=== PATIENT | female | born 1995 | race Hispanic/Latino ===

== ENCOUNTER 2023-06-02 13:53 | Day surgery (SDC) | payer SELFPAY ==
[2023-06-02] MEDS ORDERED: hydrALAZINE 20 MG/ML VIAL SLOW IVP PRN (14:17)
[2023-06-02 15:12] VITALS: BMI 29.0
[2023-06-02 15:17] LABS: Bilirubin Neg (Negative); Blood, Urine Negative (Negative); Clarity Clear (Clear); Glucose, Urine (Dipstick) Normal (Negative); Ketone, Urine Negative (Negative); Leukocyte Negative (Negative); Nitrite Negative (Negative); Protein, Urine (Dipstick) 15 mg/dl (Neg-Trace); Specific Gravity, Urine 1.015 (1.005-1.030); Urobilinogen Normal mg/dL (Less than 2)
[2023-06-02 15:39] LABS: CAUTI Indications for Culture Pregnancy
[2023-06-02 15:40] LABS: #Monocytes 0.4 10x3/uL (0.0-1.1); #Neutrophils 4.2 10x3/uL (1.5-8.4); %Basophils 0.5 % (0.0-2.0); %Eosinophils 0.6 % (0.0-6.0); %Lymphocytes 24.4 % (18.0-47.0); Hematocrit 36.1 % (34.9-44.5); Hemoglobin 12.6 g/dL (12.0-15.5); Mean Corpuscular HGB CONC 34.9 g/dL (32.0-36.0); Mean Corpuscular Hemoglobin 32.1 pg (27.0-33.0); Mean Corpuscular Volume 92.1 fl (81.6-98.3); Mean Platelet Volume 9.9 fl (7.4-10.4); Platelet Count 313 10x3/uL (150-450); RBC Distribution Width 13.2 % (11.5-14.5); Red Blood Cell (RBC) Count 3.92 10x6/uL (3.90-5.03); White Blood Cell (WBC) Count 6.3 10x3/uL (3.5-10.5)
[2023-06-02 15:40] LABS: Transitional Epithelial 0-3 HPF (None Seen)
[2023-06-02 15:42] LABS: Renal Epithelial 0-3 HPF (None Seen)
[2023-06-02 15:43] LABS: Mucous/LPF 2+ LPF (<2+)
[2023-06-02 15:44] LABS: Bacteria/HPF 2+ HPF (None Seen)
[2023-06-02 15:45] LABS: Urine Culture Reflex Yes Yes
[2023-06-02 15:48] LABS: FFN Internal QC Analyzer PASS (PASS); FFN Internal QC Cassette PASS (PASS); Fetal Fibronectin Negative (Negative)
[2023-06-02] MEDS ORDERED: Lactated Ringer's 1,000 ML IV SCH (16:00)
[2023-06-02 16:02] LABS: ALT (SGPT) 20 U/L (8-55); AST (SGOT) 15 U/L (5-34); Albumin 3.2 g/dL (3.5-5.0); Alkaline Phosphatase 144 U/L (40-110); Anion Gap 12 mmol/L (10-20); BUN (Urea Nitrogen) 6 mg/dL (7.0-18.7); Bilirubin, Total 0.4 mg/dL (0.2-1.2); Calc. Creatinine Clearance 148 mL/min (70-130); Calcium 8.6 mg/dL (7.8-10.44); Carbon Dioxide 20 mmol/L (22-29); Chloride 106 mmol/L (98-107); Estimated GFR 128; Globulin 3.4 g/dL (2.4-3.5); Glucose 130 mg/dL (70-105); Lipase 71 U/L (8-78); Potassium 3.7 mmol/L (3.5-5.1); Protein, Total 6.6 g/dL (6.0-8.3); Sodium 134 mmol/L (136-145)
[2023-06-02] MEDS ORDERED: cefTRIAXone\\ROCEPHIN 2 GM in Sodium Chloride 0.9% 100 ML IVPB SCH (18:00)
== END 2023-06-02 20:05 | disposition home or self-care (01) ==
LOC: CSHLD/OP 13:53
PROVIDERS: ATTEND Obstetrics & Gynecology
DX: O47.03 False labor before 37 completed weeks of gestation, third trimester (principal); O26.893 Other specified pregnancy related conditions, third trimester; L29.9 Pruritus, unspecified; Z3A.33 33 weeks gestation of pregnancy; Z79.899 Other long term (current) drug therapy
CPT/HCPCS: 36415; 51701; 76770; 80053; 81001; 82239; 82731; 83690; 85025; 87086; 87480; 87510; 87660; 96360; 96361; 96365; 99285; J0696; J3490

== ENCOUNTER 2023-07-03 22:03 | Day surgery (SDC) | payer SELFPAY ==
[2023-07-03 22:34] VITALS: BMI 30.8
[2023-07-03] MEDS ORDERED: hydrALAZINE 20 MG/ML VIAL SLOW IVP PRN (22:55)
[2023-07-04 00:03] LABS: Fetal Membranes Rupture No Membranes Rupture (No Rupture)
== END 2023-07-04 02:15 | disposition home or self-care (01) ==
LOC: CSHLD/OP 22:03
PROVIDERS: ATTEND Obstetrics & Gynecology
DX: O47.1 False labor at or after 37 completed weeks of gestation (principal); O23.593 Infection of other part of genital tract in pregnancy, third trimester; N93.8 Other specified abnormal uterine and vaginal bleeding; O13.3 Gestational [pregnancy-induced] hypertension without significant proteinuria, third trimester; Z3A.38 38 weeks gestation of pregnancy; Z79.899 Other long term (current) drug therapy
CPT/HCPCS: 84112; 87480; 87510; 87660; 99285

== ENCOUNTER 2023-07-07 18:00 | Inpatient (IN) | payer MEDICAID, OTHER ==
[2023-07-07 20:28] VITALS: BMI 30.4
[2023-07-07] MEDS ORDERED: Methylergonovine 0.2 MG/ML VIAL IM PRN (21:30)
[2023-07-07] MEDS ORDERED: Carboprost 250 MCG/ML AMP IM PRN (21:30)
[2023-07-07] MEDS ORDERED: Promethazine HCl 25 MG/ML VIAL IM PRN (21:30)
[2023-07-07] MEDS ORDERED: fentaNYL 50 mcg/mL 1 mL Vial SLOW IVP PRN (21:30)
[2023-07-07] MEDS ORDERED: hydrALAZINE 20 MG/ML VIAL SLOW IVP PRN (21:30)
[2023-07-07] MEDS ORDERED: Oxytocin 30 units/NS 500 ML 500 ML IV SCH ×2 (21:30→21:45)
[2023-07-07] MEDS ORDERED: Misoprostol 200 MCG TAB PR PRN (21:30)
[2023-07-07] MEDS ORDERED: Tranexamic Acid 1,000 MG/10 ML VIAL IVP PRN (21:30)
[2023-07-07] MEDS ORDERED: Diphenoxylate HCl/Atropine Tablet PO PRN (21:30)
[2023-07-07] MEDS ORDERED: Lidocaine 1% (PF) 30 ML VIAL SC PRN (21:30)
[2023-07-07] MEDS ORDERED: Acetaminophen 500 MG TAB PO PRN (21:30)
[2023-07-07] MEDS ORDERED: Docusate 100 MG CAP PO PRN (21:30)
[2023-07-07] MEDS ORDERED: Ondansetron PF 4 MG/2 ML Vial IVP PRN (21:30)
[2023-07-07] MEDS: Misoprostol 100 MCG TAB VAG SCH (21:55)
[2023-07-07 22:12] LABS: Hematocrit 35.7 % (34.9-44.5); Hemoglobin 12.4 g/dL (12.0-15.5); Mean Corpuscular HGB CONC 34.7 g/dL (32.0-36.0); Mean Corpuscular Hemoglobin 31.3 pg (27.0-33.0); Mean Corpuscular Volume 90.2 fl (81.6-98.3); Mean Platelet Volume 9.7 fl (7.4-10.4); Platelet Count 315 10x3/uL (150-450); RBC Distribution Width 13.2 % (11.5-14.5); Red Blood Cell (RBC) Count 3.96 10x6/uL (3.90-5.03)
[2023-07-07 22:47] LABS: HBSAg Index 0.12 S/CO (0-0.99); Hep B Surf Ag - L&D Non-Reactive S/CO (NonReactive)
[2023-07-07 22:48] LABS: Syphilis Antibody Nonreactive (Nonreactive); Syphilis Antibody Index 0.06 S/CO (<1.00 Non-Reactive)
[2023-07-08] MEDS ORDERED: Lidocaine 1% (PF) 30 ML VIAL SC PRN (05:35)
[2023-07-08] MEDS ORDERED: Lactated Ringer's 1,000 ML IV SCH (08:45)
[2023-07-08] MEDS ORDERED: fentaNYL/Ropivacaine Epidural 100 ML ONE (09:48)
[2023-07-08] MEDS ORDERED: Acetaminophen 325 MG TAB PO PRN (11:32)
[2023-07-08] MEDS ORDERED: Moisturizing Cream (Eucerin) 113 GM JAR TOP PRN (11:32)
[2023-07-08] MEDS ORDERED: Naloxone HCl 0.4 mg/ml Vial IVP PRN ×2 (11:32)
[2023-07-08] MEDS ORDERED: diphenhydrAMINE 50 MG/ML VIAL IVP PRN (11:32)
[2023-07-08] MEDS ORDERED: Ondansetron PF 4 MG/2 ML Vial IVP PRN (11:32)
[2023-07-08] MEDS ORDERED: Lactated Ringer's 500 ML IV PRN (11:32)
[2023-07-08] MEDS ORDERED: Promethazine HCl 25 MG/ML VIAL IM PRN (11:32)
[2023-07-08] MEDS ORDERED: ePHEDrine Sulfate 50 MG/10 ML VIAL SLOW IVP PRN (11:32)
[2023-07-08] MEDS ORDERED: Communication Order-Pharmacy FS SCH (11:45)
[2023-07-08] MEDS ORDERED: Lidocaine 2% MPF 10 ML AMP (For Epidural Use) ONE (19:01)
[2023-07-08] MEDS ORDERED: Bupivacaine 0.25% HCL 30 ML VIAL ONE (19:01)
[2023-07-08] MEDS: Lactated Ringer's 1,000 ML IV SCH ×2 (21:25→23:08)
[2023-07-08] MEDS: Misoprostol 100 MCG TAB VAG SCH ×2 (21:25→21:26)
[2023-07-08] MEDS: fentaNYL 2 mcg/Ropivacaine 0.2% Epidural 100 ML CADD EPIDURAL SCH (22:41)
[2023-07-09] MEDS: fentaNYL 2 mcg/Ropivacaine 0.2% Epidural 100 ML CADD EPIDURAL SCH (07:59)
[2023-07-09] MEDS ORDERED: Benzocaine-Menthol 82.5 ML CAN TOP PRN (12:06)
[2023-07-09] MEDS ORDERED: Acetaminophen/Codeine 30-300mg Tablet PO PRN (12:06)
[2023-07-09] MEDS ORDERED: Boostrix 0.5 ML (Tdap) VIAL (>/=7 yrs of age) IM ONE (12:06)
[2023-07-09] MEDS ORDERED: Milk Of Magnesia 30 ML UDCUP PO PRN (12:06)
[2023-07-09] MEDS ORDERED: hydrALAZINE 20 MG/ML VIAL SLOW IVP PRN (12:06)
[2023-07-09] MEDS ORDERED: Lanolin Ointment 7 GM TUBE TOP PRN (12:06)
[2023-07-09] MEDS ORDERED: Bisacodyl 10 MG SUPP PR PRN (12:06)
[2023-07-09] MEDS ORDERED: Preparation H Ointment 28 GM TUBE PR PRN (12:06)
[2023-07-09] MEDS ORDERED: diphenhydrAMINE 25 MG CAP PO PRN (12:06)
[2023-07-09] MEDS ORDERED: Ibuprofen 800 MG TAB PO SCH (14:00)
[2023-07-09] MEDS ORDERED: Polyethylene Glycol 3350 17 GM Packet PO PRN (14:54)
[2023-07-09] MEDS: Misoprostol 100 MCG TAB VAG SCH (14:57)
[2023-07-09] MEDS: Lactated Ringer's 1,000 ML IV SCH (14:57)
[2023-07-09] MEDS ORDERED: HYDROcodone/Acetaminophen 5/325 mg Tablet PO SCH (16:00)
[2023-07-09] MEDS: Acetaminophen 325 MG TAB PO SCH ×2 (16:03→21:35)
[2023-07-09] MEDS ORDERED: Ferrous Sulfate 325 MG TAB PO SCH (17:00)
[2023-07-09] MEDS ORDERED: Cyclobenzaprine 10 MG TAB PO SCH (18:45)
[2023-07-09] MEDS: Lidocaine 4% Patch TD SCH (20:04)
[2023-07-09] MEDS: Ibuprofen 800 MG TAB PO SCH (21:37)
[2023-07-10] MEDS: Acetaminophen 325 MG TAB PO SCH ×4 (02:18→21:04)
[2023-07-10] MEDS: Ibuprofen 800 MG TAB PO SCH ×3 (05:11→21:05)
[2023-07-10] MEDS: Prenatal Vitamin 1 TAB PO SCH (17:49)
[2023-07-10] MEDS: Lidocaine 4% Patch TD SCH (21:05)
[2023-07-11] MEDS: Acetaminophen 325 MG TAB PO SCH ×2 (02:06→08:30)
[2023-07-11] MEDS: Ibuprofen 800 MG TAB PO SCH (05:37)
[2023-07-11] MEDS: Prenatal Vitamin 1 TAB PO SCH (08:30)
[2023-07-11 08:39] VITALS: BP 115/62; TEMP 98.4
[2023-07-11] MEDS ORDERED: Polyethylene Glycol 3350 17 GM Packet PO SCH (09:00)
== END 2023-07-11 12:20 | disposition home or self-care (01) | DRG 805 ==
LOC: CSHLD 20:01 → CSHPP 07-09 15:30
PROVIDERS: ADMIT Obstetrics & Gynecology; ATTEND Obstetrics & Gynecology
PROC: 10E0XZZ Delivery of Products of Conception, External Approach (ICD-10-PCS; principal; 2023-07-09)
PROC: 0HQ9XZZ Repair Perineum Skin, External Approach (ICD-10-PCS; 2023-07-09)
PROC: 0UQMXZZ Repair Vulva, External Approach (ICD-10-PCS; 2023-07-09)
DX: O26.643 Intrahepatic cholestasis of pregnancy, third trimester (principal); K83.1 Obstruction of bile duct; Z37.0 Single live birth; Z3A.38 38 weeks gestation of pregnancy; O70.0 First degree perineal laceration during delivery; O99.345 Other mental disorders complicating the puerperium; F53.0 Postpartum depression
CPT/HCPCS: 36415; 51702; 85027; 86780; 86850; 86900; 86901; 87340; J2590; S0020